=== PATIENT | female | born 1960 | race Caucasian/White ===

== ENCOUNTER 2018-12-13 13:48 | Day surgery (SDC) | payer OTHER ==
[~2018-12-13 13:48] MED LIST: Bupivacaine/Epinephrine 0.25% 30 ML VIAL ONE
[2018-12-13] MEDS ORDERED: Famotidine/PF 20 mg/2ml Vial ONE (14:24)
[2018-12-13] MEDS ORDERED: Fentanyl 100 MCG/2 ML VIAL ONE (14:24)
[2018-12-13] MEDS ORDERED: Ketorolac Tromethamine 30 MG/ML VIAL ONE (15:34)
[2018-12-13] MEDS ORDERED: Rocuronium Bromide 10 MG/ML (10ML VIAL) ONE (15:34)
[2018-12-13] MEDS ORDERED: PROPOFOL 200 MG/20 ML VIAL ONE (15:34)
[2018-12-13] MEDS ORDERED: Dexamethasone 20 MG/5 ML VIAL ONE (15:34)
[2018-12-13] MEDS ORDERED: Succinylcholine Chloride 20 MG/ML 10 ml SYRINGE FS ONE (15:34)
[2018-12-13] MEDS ORDERED: Lidocaine 1% PF 5 ML VIAL ONE (15:34)
[2018-12-13] MEDS ORDERED: Glycopyrrolate 0.2 MG/ML 5 ML SYRINGE ONE (15:34)
[2018-12-13] MEDS ORDERED: Ondansetron PF 4 MG/2 ML Vial ONE (15:34)
--- NOTE | 2018-12-14 11:04 | OP ---
DATE OF PROCEDURE: 12/13/2018 PREOPERATIVE DIAGNOSIS: Acute appendicitis. PROCEDURE PERFORMED: Laparoscopic appendectomy. INDICATIONS: The patient is a 57-year-old female, who with a less than 24-hour history of right lower quadrant pain, went to the emergency room. CT scan showed acute appendicitis. FINDINGS: Acute suppurative nonperforated appendicitis. DESCRIPTION OF PROCEDURE: After informed consent was obtained, the patient was taken to the operating room, given general endotracheal anesthesia, placed in supine position. Abdomen was prepped and draped in usual fashion. Local anesthesia was infiltrated subcutaneously and deep. A subumbilical incision was performed. Subcu divided sharply. The fascia was grasped and two stay sutures of 0 Vicryl were placed in each side of midline. Midline was incised. Digital palpation revealed no local adhesions. A blunt 12 mm trocar was inserted. Pneumoperitoneum was created to a pressure of 15 mmHg. A 0-degree laparoscope was inserted under direct vision. Two 5 mm ports were placed, one suprapubic, one in right lateral abdomen. The appendix was grasped. The mesoappendix was divided utilizing the LigaSure. Base of the appendix was divided utilizing the linear 45 mm white load stapler. The appendix was placed in endosac, removed from the abdomen in the endosac. Hemostasis assured. The fascia was closed with interrupted 0 Vicryl suture. The skin was closed with interrupted 4 L Rapide. Dermabond was applied. The patient tolerated the procedure well, transferred to Recovery in good condition. Sponge and needle count was verified correct x2. Job ID: [id number]
== END 2018-12-13 17:00 | disposition home or self-care (01) ==
LOC: SDC 13:48
PROVIDERS: ATTEND Surgery
PROC: 0DTJ4ZZ Resection of Appendix, Percutaneous Endoscopic Approach (ICD-10-PCS; principal; 2018-12-13)
DX: K35.80 Unspecified acute appendicitis (principal); Z79.899 Other long term (current) drug therapy; Z88.0 Allergy status to penicillin
CPT/HCPCS: 88304; J0131; J1100; J1885; J2001; J2405; J2704; J3010; S0028